=== PATIENT | female | born 1970 | race African-American/Black ===

== ENCOUNTER → 2017-08-10 | Outpatient (CLI) | payer BC ==
[~2017-08-10] MED LIST: CIPRO 500MG TA500 MG PO; ENTOCORT EC3 MG PO; LEVOXYL0.025 MG; NORCO 325 MG-51 TAB PO; NORVASC 5MG5 MG/TAB PO; ZOFRAN 4MG T4 MG/TAB PO
== END ==
LOC: MC.RAD 07-31 07:00
DX: Z12.31 Encounter for screening mammogram for malignant neoplasm of breast (principal)

== ENCOUNTER → 2018-08-06 | Outpatient (CLI) | payer BC | LOC: MC.RAD 14:13 | DX: Z12.31 Encounter for screening mammogram for malignant neoplasm of breast (principal) ==

== ENCOUNTER → 2019-11-18 | Outpatient (CLI) | payer BC | LOC: MC.RAD 09-26 07:15 | DX: Z12.31 Encounter for screening mammogram for malignant neoplasm of breast (principal) ==

== ENCOUNTER 2021-08-20 14:09 | Observation (INO) | payer BC ==
[~2021-08-20] VITALS: Ht 154.9 cm; Wt 110.7 kg
[~2021-08-20 14:09] MED LIST changes: -LEVOXYL0.025 MG; +LEVOXYL0.075 MG PO
[2021-09-07 11:21] VITALS: BP 132/80; PULSE 106; TEMP 98.6
[2021-09-07] MEDS ORDERED: PREDNISONE50 MG PO (11:49)
[2021-09-07] MEDS ORDERED: REMERON 15M15 MG/TA1 PO (11:51)
[2021-09-07] MEDS ORDERED: BENTYL 10MG10 MG/CAP PO (11:51)
[2021-09-07] MEDS ORDERED: BUSPAR5 MG PO (11:52)
[2021-09-07] MEDS ORDERED: PROTONIX 40MG T40 MG PO (11:52)
--- NOTE | 2021-09-07 11:56 | NUR ---
Medical history reviewed with pt. Pre-op meds given. She took PO prednisone at home this morning as instructed, and completed PO flagyl at home yesterday per pre-op instructions. #20 IV started to rt hand on first attempt. Pt a&o, free of acute complaints. Respirations even and unlabored. at bedside. Call light in reach.
--- NOTE | 2021-09-07 13:45 | NUR ---
Pt was taken by Marcus Daniels to OR via cot, with personal belongings. Pt has continued to rest comfortably in room, and has denied any concerns or needs.
[2021-09-07 15:45] VITALS: BP 146/89; PULSE 99; TEMP 98.9
--- NOTE | 2021-09-07 15:45 | NUR ---
PATIENT ADMITED INTO ROOM 329 POST OP. PATIENT WAS A FAILED INTUBATION AND SURGERY WAS CANCELED. PATIENT C/O SORE THROAT & ABD GAS/BLOATING. NO C/O N/V. HIGH PITCHED BOWL SOUNDS NOTED IN ALL 4 QUADS. HEAD TO TOE ASSESSMENT COMPLETE. VSS. PACU NURSE GETTING . NO OTHER NEEDS AT THIS TIME. CALL LIGHT IN REACH.
--- NOTE | 2021-09-07 16:00 | NUR ---
NOW AT BEDSIDE VISITING WITH PATIENT & .
--- NOTE | 2021-09-07 16:20 | NUR ---
ANESTHESIA AT BEDSIDE
--- NOTE | 2021-09-07 20:00 | NUR ---
PATIENT IS ALERT AND ORIENTED X4. PATIENT STATES THROAT IS VERY SORE AND HURTS TO SWALLOW. PATIENT TO BE DISCHARGED IN AM. PATIENT HAS IV TO RIGHT HAND AND SLIGHT TACHYCARDIA IN 100S. PATIENT AT BEDSIDE. PATIENT DENIES FURTHER NEEDS AT THIS TIME. CALL LIGHT WITHIN REACH. HEAD TO TOE ASSESSMENT COMPLETE.
[2021-09-07 20:03] VITALS: BP 139/80; PULSE 94; TEMP 98.2
--- NOTE | 2021-09-07 22:00 | NUR ---
PATIENT BROUGHT COLD CLEAR LIQUIDS AND WARM TEA. ICE PACK GIVEN FOR THROAT
[2021-09-07 23:24] VITALS: BP 133/80; PULSE 84; TEMP 98.2
[2021-09-08] VITALS (7 sets, daily range): BP systolic 127–146; BP diastolic 44–84; PULSE 71–105; TEMP 97.9–99.1
--- NOTE | 2021-09-08 00:10 | NUR ---
RESPIRATORY THERAPY CALLED FOR OXYMASK FOR PATIENT TO USE INSTEAD OF CPAP. PATIENT GIVEN ANXIETY MEDS PER ORDERS.
--- NOTE | 2021-09-08 05:31 | NUR ---
PATIENT SLEPT ON AND OFF THROUGHOUT NIGHT. PATIENT COMPLAINING OF THROAT PAIN AND SAYING IT HURTS TO SWALLOW. PATIENT GIVEN COLD LIQUIDS AND WARM LIQUIDS THROUGHOUT NIGHT. ICE PACK PROVIDED FOR THROAT AND ANXIETY MEDS GIVEN PER ORDERS. WILL REPORT TO DAYSHIFT.
[2021-09-08 06:53] LABS: BASO % 0.2 % (0.0-2.0); EOS % 0.1 % (0-4.0); GRAN # 13.8 K/mm3 (1.4-6.5); GRAN % 80.9 % (42.2-75.2); HEMATOCRIT 39.4 % (37.0-47.0); HEMOGLOBIN 12.5 g/dl (12.5-16.0); LYMPH # 1.9 K/mm3 (1.2-3.4); LYMPH % 11.3 % (20.0-51.0); MEAN CELL VOLUME 90 fl (80.0-100.0); MEAN CORPUSCULAR HEMOGLOBIN 29 pg (27.0-31.0); MEAN CORPUSCULAR HGB CONC 32 g/dl (33.0-37.0); MEAN PLATELET VOLUME 9.9 fl (7.4-10.4); MONO # 1.2 K/mm3 (0.1-0.6); PLATELET COUNT 302 K/mm3 (130-400); RED BLOOD COUNT 4.37 M/mm3 (4.10-5.30); REDCELL DISTRIBUTION WIDTH-CV 14.4 % (11.5-14.5)
[2021-09-08 06:59] LABS: INR 1.3 (0.8-3.0); PROTHROMBIN TIME 14.4 SECONDS (9.7-12.8)
[2021-09-08 07:25] LABS: ALBUMIN 3.5 gm/dL (3.5-5.0); BILIRUBIN,TOTAL 0.5 mg/dL (0.2-1.2); CALCIUM 9.6 mg/dL (8.4-10.2); CREATININE, serum 0.99 mg/dL (0.57-1.11); POTASSIUM 3.9 mmol/L (3.5-4.5); TOTAL PROTEIN 7.9 gm/dL (6.2-8.1)
--- NOTE | 2021-09-08 08:52 | NUR ---
Pt currently sitting up in the chair. She is tearful and upset regarding the events that happened yesterday. Refreshed her ice pack and discussed meal options with her. Pt did ask for one of her PRNs for anxiety which was given. Tylenol offered for the pain, but she stated she did not think that it helped with the throat pain. Pt SO is in the room with her. Pt has ordered something to eat. All questions answered, call light within reach.
--- NOTE | 2021-09-08 10:18 | NUR ---
Air Chief Marshal met with patient and her , Abraham (ph#[phone]) to discuss discharge planning. Patient lives in [place] with Abraham and sees Dr. Garza for primary care. Patient obtains medications from [facility] in with no difficulties. Patient uses a CPAP at home and is independent with ADLS. Patient does not have a DPOA-HC but states she has a Will completed. Patient is not interested in completing a DPOA-HC at at this time. Patient plans to return home once ready for discharge. Discharge Plan: Home with .
--- NOTE | 2021-09-08 11:30 | NUR ---
Initial visit; Patient thanked Social Sciences Research Scientist for looking in on her, offering prayer and God's Blessings. Social Sciences Research Scientist will keep patient in her prayers.
--- NOTE | 2021-09-08 12:15 | NUR ---
Dr Lawton has been in to see patient, new orders wrote. Pt is currently sitting up on the side of the bed eating some soup. She is not able to eat the solid, but is drinking the broth. One time dose of toradol given. Pt is requesting to take a shower. Informed her to notify nursing so that we can wrap her IV
--- NOTE | 2021-09-08 16:00 | NUR ---
Pt reported that the IV toradol did help. Also using a K-pad now and reports that she feels is it helping as well. Right Of Way Appraiser has been in to see patient and gave her a yogurt smoothy which pt stated was good and easy to drink. Notified Dr Lawton of pt not feeling ready to go home and received an order for additional doses of toradol.
--- NOTE | 2021-09-08 21:00 | NUR ---
PATIENT IS ALERT AND ORIENTED X3 SITTING IN CHAIR. PATIENT ON LOW FIBER DIET. PATIENT HAS IV TO RIGHT HAND. PATIENT GIVEN ICE WATER AND HEAT PACK TO THROAT. PATIENT TO BE DISCHARGED IN AM. PATIENT DENIES PAIN OR FURTHER NEEDS AT THIS TIME. STATES SHE IS FEELING MUCH BETTER THAN YESTERDAY. CALL LIGHT A[place]IN PORTILLO. HEAD TO TOE ASSESSMENT COMPLETE.
[2021-09-09 03:45] VITALS: BP 157/87; PULSE 85; TEMP 97.4
--- NOTE | 2021-09-09 05:18 | NUR ---
PATIENT DID WELL THROUGHOUT NIGHT. SLEPT MOST OF NIGHT. GIVEN HOT AND COLD DRINKS AND HEATING PAD THROUGHOUT NIGHT. SHOULD DISCHARGE TODAY. NO FURTHER NEEDS AT THIS TIME. WILL REPORT TO DAYSHIFT.
[2021-09-09 07:20] VITALS: BP 137/73; PULSE 74; TEMP 98.1
[2021-09-09 13:05] VITALS: BP 134/80; PULSE 89; TEMP 98.3
[2021-09-09] MEDS ORDERED: MOTRIN 600600 MG/TAB PO (14:00)
[2021-09-09] MEDS ORDERED: CLEOCIN HCL300 MG PO (14:01)
--- NOTE | 2021-09-09 14:41 | NUR ---
Reviewed discharge instructions with pt to include prescriptions and follow up appointment
--- NOTE | 2021-09-09 17:55 | NUR ---
COOK 3 PASTRY was in the room talking with the patient and her . Nurse took the patient down in a wheelchair to vehicle outside the ER entrance. No further needs expressed. Discharge paperwork and personal belongings with the patient
[2021-09-12] MEDS ORDERED: LIDOCAINE HCL100 M1 MM (19:17)
[2021-09-29] MEDS ORDERED: NORVASC 10MG10 MG PO (05:55)
[2021-09-29] MEDS ORDERED: VISTARIL 2525 MG/CAP PO (05:57)
[2021-10-08] MEDS ORDERED: ROXICODONE 55 MG/TAB PO (11:17)
[2021-10-08] MEDS ORDERED: CELEBREX 200MG200 MG PO (11:18)
[2021-10-08] MEDS ORDERED: NEURONTIN100 MG/CAP PO (11:18)
== END 2021-09-09 17:54 | disposition home or self-care (01) ==
LOC: SURG 09-07 09:59 → INPTSU 09-07 09:59 → SURG 09-07 12:00
PROVIDERS: ADMIT Surgery
DX: K50.012 Crohn's disease of small intestine with intestinal obstruction (principal); T88.4XXA Failed or difficult intubation, initial encounter; I10 Essential (primary) hypertension; J45.909 Unspecified asthma, uncomplicated; G47.33 Obstructive sleep apnea (adult) (pediatric); K21.9 Gastro-esophageal reflux disease without esophagitis; E07.9 Disorder of thyroid, unspecified; Z90.89 Acquired absence of other organs; Z90.710 Acquired absence of both cervix and uterus; Z99.89 Dependence on other enabling machines and devices; Z79.899 Other long term (current) drug therapy; Z79.890 Hormone replacement therapy; Z53.8 Procedure and treatment not carried out for other reasons; Z80.0 Family history of malignant neoplasm of digestive organs; Z80.3 Family history of malignant neoplasm of breast
CPT/HCPCS: A4314; A9284; G0378; J0690; J1100; J1885; J2370; J2405; J2704; J3010; J7050; J7120; J7512

== ENCOUNTER → 2021-11-09 | Outpatient (CLI) | payer BC ==
[~2021-11-09] MED LIST changes: +BENTYL 10MG10 MG/CAP PO; +BUSPAR5 MG PO; +CELEBREX 200MG200 MG PO; +CLEOCIN HCL300 MG PO; +LIDOCAINE HCL100 M1 MM; +MOTRIN 600600 MG/TAB PO; +NEURONTIN100 MG/CAP PO; +NORVASC 10MG10 MG PO; +PREDNISONE50 MG PO; +PROTONIX 40MG T40 MG PO; +REMERON 15M15 MG/TA1 PO; +ROXICODONE 55 MG/TAB PO; +VISTARIL 2525 MG/CAP PO
== END ==
LOC: MC.RAD 09-13 09:45
DX: Z12.31 Encounter for screening mammogram for malignant neoplasm of breast (principal)

== ENCOUNTER 2021-12-21 10:56 | Outpatient (CLI) | payer BC ==
[2021-12-21] VITALS (8 sets, daily range): BP systolic 138–149; BP diastolic 82–96; PULSE 99–106; TEMP 100.4
[~2021-12-21] VITALS: Ht 154.9 cm; Wt 104.5 kg
[2021-12-21] MEDS ORDERED: VOLTAREN GEL 1%1 TU TP (11:24)
[2021-12-21] MEDS ORDERED: ESTROGEL0.06% TOP (11:25)
[2021-12-21] MEDS ORDERED: DIPROLENE CR15GM TP (11:26)
[2021-12-21] MEDS ORDERED: VITAMIN D31000 I1 PO (11:26)
[2021-12-21] MEDS ORDERED: VENTOLIN0.09 MG IH (11:27)
[2021-12-21] MEDS ORDERED: VITAMINC1000TA PO (11:27)
--- NOTE | 2021-12-21 13:00 | NUR ---
Pt tolerated infusion and 1 hr obs period without issue. INT DC'd with catheter intact. She is escorted out to ED entrance with steady gait.
== END 2021-12-21 13:00 | disposition home or self-care (01) ==
LOC: EUO 10:56
DX: U07.1 COVID-19 (principal)
CPT/HCPCS: M0247; Q0247